=== PATIENT | female | born 1975 | race Caucasian/White ===

== ENCOUNTER → 2025-05-28 | Outpatient (CLI) | payer OTHER, SELFPAY ==
--- NOTE | 2025-05-28 16:21 | RAD_ITS ---
PROCEDURE: ABDOMEN SINGLE VIEW 05/28/2025 REASON FOR EXAM: CONSTIPATION TECHNIQUE: Two-view supine abdomen COMPARISON: None. RAD/Abdomen Single View IMPRESSION: No excess stool burden is seen. The bowel-gas pattern is unremarkable. Mild degenerative changes of the spine are also seen. Reading Location: [place] [id number]
[2025-05-30 17:07] LABS: Immunoglobulin A 104 mg/dL (87-352)
== END | disposition home or self-care (01) ==
PROVIDERS: PCP Family Medicine; Referring Provider Student in an Organized Health Care Education/Training Program; Visit Provider Student in an Organized Health Care Education/Training Program
DX: K59.00 Constipation, unspecified (principal)
CPT/HCPCS: 36415; 74018; 82784; 83516; 86003; 86005; 86255

== ENCOUNTER → 2025-06-12 | Outpatient (CLI) | payer OTHER, SELFPAY ==
--- NOTE | 2025-06-12 10:16 | NM_ITS ---
PROCEDURE: GASTRIC EMPTYING STUDY 06/12/2025 REASON FOR EXAM: NAUSEA/VOMTING TECHNIQUE: The patient ingested a standard meal of oatmeal, sulfur colloid and water. There was no vomiting postprandially. Anterior and posterior planar images of the upper abdomen were obtained for 1 minute immediately following the meal at 1h, 2h and 4h if more than 10% of the activity persisted within the stomach. Regions of interest were drawn, and a geometric mean was used to calculate a [id number]. RADIOPHARMACEUTICAL: Sulfur colloid DOSE 1.2 mCimCi FINDINGS: Percent activity remaining in stomach: 1 hour 44 % (normal 37-90%) NM/Gastric Emptying Study IMPRESSION: Normal gastric emptying study. Reading Location: [place] [id number]
== END | disposition home or self-care (01) ==
PROVIDERS: PCP Family Medicine; Referring Provider Student in an Organized Health Care Education/Training Program; Visit Provider Student in an Organized Health Care Education/Training Program
DX: R11.2 Nausea with vomiting, unspecified (principal); K59.00 Constipation, unspecified
CPT/HCPCS: 78264; A9541